=== PATIENT | male | born 1985 | race African-American/Black ===

== ENCOUNTER 2018-07-14 13:45 | Emergency (ER) | payer SELFPAY ==
[~2018-07-14] VITALS: Ht 177.8 cm; Wt 93.0 kg
[2018-07-14 13:54] VITALS: Ht 177.8 cm; Wt 93.0 kg
[2018-07-14 14:12] VITALS: BP 127/77
== END 2018-07-14 14:12 | disposition home or self-care (01) ==
LOC: ED 13:45
DX: B34.9 Viral infection, unspecified (principal); F17.200 Nicotine dependence, unspecified, uncomplicated